=== PATIENT | female | born 1980 | race Caucasian/White ===

== ENCOUNTER 2022-09-27 16:52 | Emergency (ER) | payer MEDICAID ==
[~2022-09-27] VITALS: Ht 167.6 cm; Wt 102.1 kg
[2022-09-27 17:52] VITALS: BP_SYST 148
--- NOTE | 2022-09-27 18:05 | NUR ---
Patient triaged and placed in waiting room. VSS and patient appears in no acute distress at this time. Accompanied by SELF, awaiting available bed, and MD notified of need for MSE.
[2022-09-27 18:06] LABS: BASOPHILS % (AUTO) 0.3 % (0.0-2.0); EOSINOPHILS # (AUTO) 0.1 K/uL (0.0-0.4); EOSINOPHILS % (AUTO) 1.4 % (0.0-4.0); HEMATOCRIT 37.4 % (36-48); HEMOGLOBIN 12.5 g/dL (12.0-16.0); LYMPHOCYTES # (AUTO) 1.7 K/uL (1.0-5.5); LYMPHOCYTES % (AUTO) 23.7 % (20.5-51.5); MEAN CORPUSCULAR HEMOGLOBIN 29 pg (27-31); MEAN CORPUSCULAR HGB CONC 34 % (32-36); MEAN CORPUSCULAR VOLUME 86 fL (79.0-98.0); MONOCYTES # (AUTO) 0.5 K/uL (0.0-1.0); MONOCYTES % (AUTO) 6.9 % (1.7-9.3); NEUTROPHILS # (AUTO) 4.8 K/uL (1.8-7.7); NEUTROPHILS % (AUTO) 67.7 % (40.0-70.0); PLATELET COUNT (AUTO) 268 K/uL (130-430); RED BLOOD CELL COUNT(AUTO) 4.37 MIL/uL (4.2-6.2); RED CELL DISTRIBUTION WIDTH 13.6 % (9.0-15.0); WHITE BLOOD COUNT (AUTO) 7.2 K/uL (4.8-10.8)
--- NOTE | 2022-09-27 18:07 | NUR ---
Patient to ER bed 7 to gown for evaluation. Side rails up. Report given to DAWN. DUFFY.
[2022-09-27 18:19] LABS: ALBUMIN 3.3 g/dL (3.4-4.8); C-REACTIVE PROTEIN QUANT 1.3 mg/dL (0-0.5); CALCIUM 8.7 mg/dL (8.4-11.0); CREATININE 0.81 mg/dL (0.55-1.30); TOTAL BILIRUBIN 0.3 mg/dL (0.0-1.0)
--- NOTE | 2022-09-27 18:30 | NUR ---
PATIENT CAME FROM HOME, C/O PELVIC PAIN & LOWER RIGHT ABD PAIN. STATES SHE BEGAN HAVING SOPRE THROAT FRIDAY, FOLLOWED BY DIARRHEA FRIDAY & NOW HAS HAD PELVIS/RIGHT SIDED ABDOMINAL PAIN X 2-3 DAYS. PT STATES HER KIDS HAVE BEEN SICK W/ SIMILAR SYMPTOMS PREVIOUSLY. HX OF HTN, MIGRAINES, IBS, ACID REFLUX. ALLERGIS: IMITREX & BACTRIM.
[2022-09-27] MEDS ORDERED: KETOROLAC TROMETHAMINE 15 MG VIAL IVP ONE (18:45)
[2022-09-27] MEDS ORDERED: NACL 0.9% 1,000 ML IV ONE (18:45)
--- NOTE | 2022-09-27 19:01 | NUR ---
Consent for IV contrast signed. Pt notes previous procedureof contrast no reaction.
--- NOTE | 2022-09-27 19:01 | NUR ---
# 20 gauge angiocath placed to right ac. Use of asceptic technique. Opsite placed over site. Blood return noted. Blood for lab drawn from site. Flushed with 10 cc of normal saline. No evidence of infiltration noted. Patient tolerated well.
[2022-09-27 19:07] LABS: BILIRUBIN,URINE NEGATIVE (NEGATIVE); BLOOD, URINE 3+ (NEGATIVE); CLARITY/URINE SL CLOUDY (CLEAR); COLOR,URINE YELLOW (YELLOW); GLUCOSE,URINE NEGATIVE (NEGATIVE); KETONES,URINE NEGATIVE (NEGATIVE); LEUKOCYTE ESTERASE ,URINE TRACE (NEGATIVE); NITRITE, URINE NEGATIVE (NEGATIVE); PH,URINE 5.5 (5.0-8.0); PROTEIN URINE TRACE (NEGATIVE); UROBILINOGEN,URINE 0.2 (0.2-1.0)
[2022-09-27 19:11] LABS: BACTERIA,URINE FEW /HPF (None Seen); MUCUS,URINE None Seen /LPF (None Seen); RBC,URINE >100 /HPF (0-3)
--- NOTE | 2022-09-27 19:25 | NUR ---
Received verbal report from outgoing nurse TATI Coffman. Received pt awake and alert, no s/s of distress noted. Pt has a 20g IV on right AC, patent and intact no s/s of infiltration noted. Began normal saline bolus. Safety precautions in place.
[2022-09-27] MEDS ORDERED: cephALEXin 500 MG CAPSULE PO ONE (19:45)
[2022-09-27] MEDS ORDERED: TAMS-11 PO (19:47)
[2022-09-27] MEDS ORDERED: CEPH-548 PO (19:47)
[2022-09-27] MEDS ORDERED: IBUP-1969 PO (19:47)
[2022-09-27 20:45] VITALS: BP_SYST 135
--- NOTE | 2022-09-27 20:45 | NUR ---
Patient given written and verbal discharge instructions and verbalizes understanding. ER dr Trinidad discussed with patient the results and treatment provided. Patient in stable condition. ID arm band removed. IV catheter removed intact and dressing applied, no active bleeding. Rx of Cephalexin, Motrin, Flomax given. Patient educated on pain management and to follow up with PMD. Pain Scale 2/10. Opportunity for questions provided and answered. Medication side effect fact sheet provided.
== END 2022-09-27 20:45 | disposition home or self-care (01) ==
LOC: SED 16:52
DX: N30.01 Acute cystitis with hematuria (principal); N13.30 Unspecified hydronephrosis; N23 Unspecified renal colic; Z88.2 Allergy status to sulfonamides; Z79.899 Other long term (current) drug therapy; Z20.822 Contact with and (suspected) exposure to COVID-19
CPT/HCPCS: 99285; 74177; 96374; 96361; 87426; 80053; 81000; 82150; 84703; 83690; 85025; 86140; 36415; 76376; 83605; 87804 ×2; J1885; Q9967; J7030

== ENCOUNTER 2023-03-13 16:27 | Emergency (ER) | payer MEDICAID ==
[~2023-03-13] VITALS: Ht 167.6 cm; Wt 97.5 kg
[2023-03-13 16:27] VITALS: BP_SYST 153; PULSE 74; RESP 18; TEMP 98.9; O2SAT 99
[~2023-03-13 16:27] MED LIST: CEPH-548 PO; IBUP-1969 PO; TAMS-11 PO
[2023-03-13] MEDS ORDERED: NABU-140 PO (18:38)
[2023-03-13] MEDS ORDERED: ZAN4 PO (18:38)
[2023-03-13 18:50] VITALS: BP_SYST 153; PULSE 74; RESP 18; TEMP 98.9; O2SAT 99
== END 2023-03-13 18:50 | disposition home or self-care (01) ==
LOC: SED 16:27
DX: M54.16 Radiculopathy, lumbar region (principal); M54.50 Low back pain, unspecified; Z88.2 Allergy status to sulfonamides; Z79.899 Other long term (current) drug therapy
CPT/HCPCS: 72100-TC; 99283